=== PATIENT | female | born 1970 | race Caucasian/White ===

== ENCOUNTER → 2016-12-07 | Outpatient (CLI) | payer MEDICARE, OTHER ==
--- NOTE | 2016-12-08 09:25 | RADIOLOGY REPORT (SQ) ---
EXAM DESCRIPTION: MRI RT LOWER JOINT WITHOUT COMPLETED DATE/TIME: 12/07/2016 5:07 pm REASON FOR STUDY: R KNEE PAIN COMPARISON: None. TECHNIQUE: Rightknee images acquired and stored on PACS. Multiplanar images include fat sensitive s equences as T1, water sensitive sequences as FST2 or STIR, cartilage sensitive sequences as FSPD, and gradient echo sequences. LIMITATIONS: None. FINDINGS: JOINT AND BURSAE: Relatively small joint effusion. No loose bodies detected. BONE CORTEX AND MARROW: No alteration of signal to suggest marrow replacement. No worrisome bone lesi ons. No occult fracture. ACL: Intact. No degeneration or ganglion cyst. PCL: Intact. MCL: Intact. No periligamentous edema or fluid. LCL: Intact. No periligamentous edema or fluid. MEDIAL MENISCUS: Minimally extruded appearance. Mild degenerative signal but tear not otherwise sugg ested. LATERAL MENISCUS: No tears. No abnormal signal. MEDIAL COMPARTMENT: No focal chondral lesions or reactive bone changes are suggested. Mild irregular chondral thinning throughout the medial femoral condyle. LATERAL COMPARTMENT: No focal chondral lesions or reactive bone changes are suggested. PATELLA: No chondromalacia. No subchondral cysts. Medial and lateral retinacula intact. EXTENSOR MECHANISM: Intact. Quadriceps and patella tendons normal. SOFT TISSUES: Adjacent muscles and subcutaneous tissues normal. Normal flow void in popliteal artery and vein. OTHER: No other significant finding. IMPRESSION: 1. Generally intact cruciate and collateral ligaments. No suggestion of significant me niscus pathology. 2. No discrete chondral lesions. Mild chondral thinning, particularly in the medi al compartment. 3. Small joint effusion. No loose bodies are appreciated. TECHNICAL DOCUMENTATION: JOB ID: [id number]- All Rights Reserved
--- NOTE | 2016-12-08 11:11 | RADIOLOGY REPORT (SQ) ---
EXAM DESCRIPTION: MRI RT LOWER JOINT WITHOUT COMPLETED DATE/TIME: 12/07/2016 5:07 pm REASON FOR STUDY: R ANKLE PAIN COMPARISON: None. TECHNIQUE: Right ankle images acquired and stored on PACS. Multiplanar images include fat sensitive sequences as T1, fluid sensitive sequences as FST2/STIR, cartilage sensitive sequences as FSPD, and g radient echo sequences. LIMITATIONS: None. FINDINGS: BONE MARROW: No alteration of signal to suggest marrow replacement or edema. No occult fra cture. No large osteophytes. Incidental bone island in the talar dome. EFFUSIONS: No subtalar or tibiotalar effusions. No loose bodies. OSSEOUS ARTICULATIONS: Normal tibiotalar, subtalar, talonavicular and calcaneocuboid joints. TALAR DOME AND TIBIAL PLAFOND: Normal cartilage. No osteochondral defect. ACHILLES TENDON: Intact without partial or full-thickness tear. No adjacent bursal fluid or edema. TIBIALIS ANTERIOR TENDON: Intact without edema at the 1st MT attachment. TIBIALIS POSTERIOR TENDON: Normal morphology and no edema at the navicular attachment. No tendon griffin th fluid. FLEXOR HALLUCIS LONGUS AND FLEXOR DIGITORUM TENDONS: Normal morphology and no tendon sheath fluid. No edema of the os trigonum. PERONEUS LONGUS AND BREVIS TENDON: Normal morphology and no tendon sheath fluid. No subluxation. ATFL, CFL, PTFL: Intact. No thickening or signal alteration. No lopez-ligamentous fluid. DELTOID LIGAMENT: Visualized components intact. TARSAL TUNNEL: No masses. No muscle atrophy. SINUS TARSI: Preserved fat. Normal appearance. PLANTAR FASCIA: No signal alteration or tear. ADJACENT SOFT TISSUES: No masses. OTHER: No other significant finding. IMPRESSION: NORMAL MRI OF THE ANKLE. COMMENT: TECHNICAL DOCUMENTATION: JOB ID: [id number] [employer]- All Rights Reserved
== END ==
LOC: RAD 14:18
PROVIDERS: ATTEND Orthopaedic Surgery
DX: M25.561 Pain in right knee (principal); M25.571 Pain in right ankle and joints of right foot; M25.461 Effusion, right knee

== ENCOUNTER → 2017-04-30 | Outpatient (CLI) | payer OTHER, MEDICARE ==
--- NOTE | 2017-04-30 10:39 | RADIOLOGY REPORT (SQ) ---
EXAM DESCRIPTION: MRI RT LOWER JOINT WITHOUT COMPLETED DATE/TIME: 04/30/2017 9:05 am REASON FOR STUDY: PAIN IN RIGHT KNEE M25.561 PAIN IN RIGHT KNEE COMPARISON: MRI of right knee 12/07/2016 TECHNIQUE: Rightknee images acquired and stored on PACS. Multiplanar images include fat sensitive s equences as T1, water sensitive sequences as FST2 or STIR, cartilage sensitive sequences as FSPD, and gradient echo sequences. LIMITATIONS: None. FINDINGS: JOINT AND BURSAE: Moderate size suprapatellar knee joint effusion. BONE CORTEX AND MARROW: No alteration of signal to suggest marrow replacement. No worrisome bone lesi ons. No occult fracture. ACL: Intact. No degeneration or ganglion cyst. PCL: Intact. MCL: Intact. No periligamentous edema or fluid. LCL: Intact. No periligamentous edema or fluid. MEDIAL MENISCUS: Small horizontal tear midbody medial meniscus without parameniscal cyst, best shown on coronal image 18. LATERAL MENISCUS: No tears. No abnormal signal. MEDIAL COMPARTMENT: Moderate chondromalacia weight-bearing surface medial femoral condyle. No bone br uises or reactive marrow edema. No osteophytes. LATERAL COMPARTMENT: Cartilage preserved. No bone bruises or reactive marrow edema. No osteophytes. PATELLA: Mild lateral facet patellar chondromalacia. No subchondral cysts. Medial and lateral retinac quinn intact. EXTENSOR MECHANISM: Intact. Quadriceps and patella tendons normal. SOFT TISSUES: Adjacent muscles and subcutaneous tissues normal. Normal flow void in popliteal artery and vein. OTHER: No other significant finding. IMPRESSION: Joint effusion. Small horizontal tear mid body medial meniscus Chondromalacia lateral patellar facet and medial femoral condyle TECHNICAL DOCUMENTATION: JOB ID: [id number] [employer]- All Rights Reserved
== END ==
LOC: RAD 08:18
PROVIDERS: ATTEND Orthopaedic Surgery Sports Medicine
DX: S83.241A Other tear of medial meniscus, current injury, right knee, initial encounter (principal); X58.XXXA Exposure to other specified factors, initial encounter; M22.41 Chondromalacia patellae, right knee; M25.561 Pain in right knee

== ENCOUNTER 2017-07-16 15:09 | Emergency (ER) | payer OTHER, MEDICARE ==
[2017-07-16] MEDS ORDERED: PROCHLORPERAZINE EDISYLATE INJ 10 MG/2 ML VIAL IV ONE (15:56)
[2017-07-16] MEDS ORDERED: DIPHENHYDRAMINE HCL 50 MG/ML VIAL IV ONE (15:57)
--- NOTE | 2017-07-16 16:02 | ER Document Report ---
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 The headache was 2/5. She went to work Wednesday night the Maxalt did not help. she rested and the headache went up to 4/5 which it is now. This is different location of her normal headaches. She also states that the pain seems to be coming down into her ear and her neck. She has a neurologist in [place]. TRAVEL OUTSIDE OF THE [place] IN LAST 30 DAYS: No - Related Data Allergies/Adverse Reactions: cefadroxil hydrate [From Duricef] Allergy (Mild, Verified 11/14/15 18:00) NSAIDS (Non-Steroidal Anti-Inflamma [Nsaids] Allergy (Mild, Verified 11/14/15 18 :00) Past Medical History - General Information source: Patient - Social History Smoking Status: Never Smoker Frequency of alcohol use: None Drug Abuse: None Lives with: Family Family History: None, Reviewed & Not Pertinent Pulmonary Medical History: Reports: Hx Asthma Neurological Medical History: Reports: Hx Migraine Past Surgical History: Reports: Hx Cholecystectomy, Hx Hysterectomy, Hx Orthopedic Surgery - hip, Hx Tubal Ligation - Immunizations Immunizations up to date: Yes Hx Diphtheria, Pertussis, Tetanus Vaccination: Yes Review of Systems - Review of Systems Constitutional: No symptoms reported EENT: No symptoms reported Cardiovascular: No symptoms reported Respiratory: No symptoms reported Gastrointestinal: No symptoms reported Genitourinary: No symptoms reported Female Genitourinary: No symptoms reported Musculoskeletal: No symptoms reported Skin: No symptoms reported Hematologic/Lymphatic: No symptoms reported Neurological/Psychological: See HPI Physical Exam - Vital signs Vitals: Temp Pulse Resp BP Pulse Ox 97.9 F 114 H 19 124/75 97 07/16/17 15:16 07/16/17 15:16 07/16/17 15:16 07/16/17 15:16 07/16/17 15:16 Interpretation: Normal - General General appearance: Appears well, Alert In distress: None - HEENT Head: Normocephalic, Atraumatic Eyes: Normal Conjunctiva: Normal Pupils: PERRL Mucous membranes: Normal Neck: Supple. No: Lymphadenopathy - Respiratory Respiratory status: No respiratory distress Chest status: Nontender Breath sounds: Normal Chest palpation: Normal - Cardiovascular Rhythm: Tachycardia - 114 Heart sounds: Normal auscultation Murmur: No - Abdominal Inspection: Normal Distension: No distension Bowel sounds: Normal Tenderness: Nontender Organomegaly: No organomegaly - Back Back: Normal, Nontender - Extremities General upper extremity: Normal inspection, Nontender, Normal color, Normal ROM , Normal temperature General lower extremity: Normal inspection, Nontender, Normal color, Normal ROM , Normal temperature, Normal weight bearing. No: Cj's sign - Neurological Neuro grossly intact: Yes Cognition: Normal Orientation: AAOx4 [place] Coma Scale Eye Opening: Spontaneous [place] Coma Scale Verbal: Oriented [place] Coma Scale Motor: Obeys Commands [place] Coma Scale Total: 15 Speech: Normal Motor strength normal: LUE, RUE, LLE, RLE Sensory: Normal - Psychological Associated symptoms: Normal affect, Normal mood - Skin Skin Temperature: Warm Skin Moisture: Dry Skin Color: Normal Skin irregularity: negative: Rash Course - Re-evaluation Re-evalutation: 07/16/17 17:29 Patient states headache is creeping up to 3/5. She has been to CT scan. 07/16/17 17:[address] madrigal who states that she does not need any more workup than a CT scan. Give her Tylenol [address] shows left maxillary sinus due to an air-fluid level but she has no symptoms of sinusitis I will not treat that. 07/16/17 18:17 She states her headache level is back down to 2 with IV fluid running she has gotten 250 mL so far. She can see her neurologist next week, she does not work for the weekend. I told her to return to the emergency room for any worsening of the symptoms or concerns 07/16/17 18:50 Headache down to 1, feels well enough to go home with neurology follow up - Vital Signs Vital signs: Temp Pulse Resp BP Pulse Ox 97.9 F 114 H 19 124/75 97 07/16/17 15:16 07/16/17 15:16 07/16/17 15:16 07/16/17 15:16 07/16/17 15:16 Discharge - Discharge Clinical Impression: right parietal headache Condition: Good Disposition: HOME, SELF-CARE Instructions: Acetaminophen, Intravenous Compazine for Headaches ([facility]), Use of Diphenhydramine, Headache ([facility]), Intravenous (IV) Fluids ([facility]) Additional Instructions: Return to the emergency room if symptoms worsen See your neurologist next week for follow-up Copy of CT scan given to you Referrals: GAURAV KENYON NP [Primary Care Provider] - Follow up as needed
[2017-07-16] MEDS ORDERED: NORMAL SALINE 1000 ML 1,000 ML IV ONE (17:29)
[2017-07-16] MEDS ORDERED: ACETAMINOPHEN 325 MG TABLET PO ONE (17:33)
--- NOTE | 2017-07-16 17:36 | RADIOLOGY REPORT (SQ) ---
EXAM DESCRIPTION: CT HEAD WITHOUT COMPLETED DATE/TIME: 07/16/2017 5:24 pm REASON FOR STUDY: headache, different than usual migraines COMPARISON: None. TECHNIQUE: Axial images acquired through the brain without intravenous contrast. Images reviewed wi th bone, brain and subdural windows. Images stored on PACS. All CT scanners at this facility use dose modulation, iterative reconstruction, and/or weight based d osing when appropriate to reduce radiation dose to as low as reasonably achievable (ALARA). [facility]: Dose Right [facility]: CareDose [facility]: Dose Right [facility]: Teradose 4D [facility]: Smart SafeBoot RADIATION DOSE: CT Rad equipment meets quality standard of care and radiation dose reduction techniq ues were employed. CTDIvol: 64.6 mGy. DLP: 1163 mGy-cm. mGy. LIMITATIONS: None. FINDINGS: VENTRICLES: Normal size and contour. CEREBRUM: No masses. No hemorrhage. No midline shift. No evidence for acute infarction. Normal gra y/white matter differentiation. No areas of low density in the white matter. CEREBELLUM: No masses. No hemorrhage. No alteration of density. No evidence for acute infarction. EXTRAAXIAL SPACES: No fluid collections. No masses. ORBITS AND GLOBE: No intra- or extraconal masses. Normal contour of globe without masses. CALVARIUM: No fracture. PARANASAL SINUSES: Left maxillary sinus air-fluid level. Remaining sinuses are clear. SOFT TISSUES: No mass or hematoma. OTHER: No other significant finding. IMPRESSION: No acute intracranial findings. Acute left maxillary sinusitis. EVIDENCE OF ACUTE STROKE: NO. COMMENT: Quality ID # [id number]: Final reports with documentation of one or more dose reduction techniques (e.g., Automated exposure control, adjustment of the mA and/or kV according to patient size, use of iterative reconstruction technique) TECHNICAL DOCUMENTATION: JOB ID: [id number] [place]-72 2010 [employer]- All Rights Reserved
[2017-07-16 19:23] VITALS: BP 119/51
== END 2017-07-16 19:05 | disposition home or self-care (01) ==
LOC: ER 15:09
DX: R51 Headache (principal); R00.0 Tachycardia, unspecified; J45.909 Unspecified asthma, uncomplicated; Z88.8 Allergy status to other drugs, medicaments and biological substances; Z88.1 Allergy status to other antibiotic agents; Z86.69 Personal history of other diseases of the nervous system and sense organs
CPT/HCPCS: 99284; 96361; 96374; 96375; 70450; J1200; J0780; J7030

== ENCOUNTER → 2017-09-11 | Outpatient (CLI) | payer OTHER ==
--- NOTE | 2017-09-12 14:11 | RADIOLOGY REPORT (SQ) ---
EXAM DESCRIPTION: MRI LT LOWER JOINT WITHOUT COMPLETED DATE/TIME: 09/11/2017 9:21 am REASON FOR STUDY: LEFT HIP BURSITIS M70.72 OTHER BURSITIS OF HIP, LEFT HIP COMPARISON: None. TECHNIQUE: [employer] images acquired and stored on PACS. Multiplanar images to include fat sensitive s equences as T1, fluid sensitive sequences as T2/STIR and gradient echo sequences. Large FOV fat and f luid sensitive sequences include pelvis and opposite hip. LIMITATIONS: None. FINDINGS: BONE CORTEX AND MARROW: No generalized marrow replacement. No occult fracture. No worriso me bone lesions. TARGETED HIP: FEMORAL HEAD: No occult fracture. No osteophytes or subchondral cysts. Normal sphericity of femoral h ead/neck junction. No acetabular dysplasia. No evidence femoroacetabular impingement. No significant effusion. ACETABULUM: No acetabular dysplasia. No subchondral cysts. LABRUM: No loss of cartilage or delamination. Labrum is intact. No paralabral cysts. TROCHANTER: No trochanteric bursal effusion. Edema at the insertion of the gluteus medius on the tro chanter. OPPOSITE HIP: Edema at the insertion of the gluteus medius on the trochanter. PELVIS, LOWER LUMBAR SPINE, SACROILIAC JOINTS: PELVIS : No insufficiency/stress fractures. No significant degenerative changes. Sacroiliac joints normal. L SPINE: No significant osteophytes or degenerative changes of the visualized lumbar spine. MUSCLES AND SOFT TISSUES: Adductors and piriformis normal. Abductors and greater trochanteric bursa n ormal without edema or fluid. Iliopsoas bursa without fluid. Hamstring attachments without edema or t ear. PELVIC SOFT TISSUES: No masses or adenopathy. SCIATIC NERVE: Identified, without masses or abnormal signal. OTHER: No other significant finding. IMPRESSION: Edema at the insertion of the gluteus medius both the left and right, trochanteric syndr ome. Red marrow reconversion without without marrow edema or replacement. TECHNICAL DOCUMENTATION: JOB ID: [id number] [employer]- All Rights Reserved Reading location - IP/workstation name: [email or web address]
== END ==
LOC: RAD 08:18
PROVIDERS: ATTEND Physician Assistant
DX: M70.72 Other bursitis of hip, left hip (principal)

== ENCOUNTER 2018-08-27 15:04 | Emergency (ER) | payer OTHER, MEDICARE ==
[2018-08-27 15:13] VITALS: BP 130/65
[2018-08-27] MEDS ORDERED: OXYCODONE HCL IR 5 MG TABLET PO ONE (15:25)
--- NOTE | 2018-08-27 15:32 | ER Document Report ---
HPI - HPI Time Seen by Provider: 08/27/18 15:17 Pain Level: 2 Notes: Patient is a 48-year-old female with a history of connective tissue disorder, migraine, asthma who presents to the emergency department complaining of continued nasal congestion/discharge, dry nonproductive cough, headache, soreness in the left lower chest when she is coughing over the last couple days. She was diagnosed with flu 3 days ago and has had symptoms total for about 4-5 days. Patient states that she took 1 dose of the Tamiflu, but could not tolerate it so she has not been taking it. She is otherwise able to eat and drink without difficulty. She is urinating normally and having normal bowel movements. Denies any fever, head injury, neck pain, changes in vision/speech/mentation/hearing, sore throat, chest pain, palpitations, syncope, shortness of breath, wheeze, dyspnea, abdominal pain, nausea/vomiting/diarrhea, urinary retention, dysuria, hematuria, or rash. - ROS Systems Reviewed and Negative: Yes All other systems reviewed and negative - REPRODUCTIVE Reproductive: DENIES: : Past Medical History - Social History Smoking Status: Never Smoker Family History: None, Reviewed & Not Pertinent Patient has suicidal ideation: No Patient has homicidal ideation: No Pulmonary Medical History: Reports: Hx Asthma Neurological Medical History: Reports: Hx Migraine Renal/ Medical History: Denies: Hx Peritoneal Dialysis Past Surgical History: Reports: Hx Cholecystectomy, Hx Hysterectomy, Hx Orthopedic Surgery - hip, Hx Tubal Ligation - Immunizations Immunizations up to date: Yes Hx Diphtheria, Pertussis, Tetanus Vaccination: Yes Vertical Provider Document - CONSTITUTIONAL Agree With Documented VS: Yes Notes: PHYSICAL EXAMINATION: GENERAL: Well-appearing, well-nourished and in no acute distress. A&Ox4. Answers questions appropriately. Moves comfortably w/o notable distress HEAD: Atraumatic, normocephalic. EYES: Pupils equal round and reactive to light, extraocular movements intact, sclera anicteric, conjunctiva are normal. ENT: EAC clear b/l. TM's intact b/l without erythema, fluid, or perforation. Nares patent and with clear discharge. oropharynx no erythema without exudates. No tonsilar hypertrophy without erythema or exudate. No palatine shift. Uvula midline. No tongue protrusion. No drooling, hoarseness, or airway compromise. Moist mucous membranes. + frontal sinus tenderness. NECK: Normal range of motion, supple without lymphadenopathy. No rigidity/meningismus. LUNGS: Scant wheeze base b/l. No retractions HEART: Regular rate and rhythm without murmurs, rubs, gallops. ABDOMEN: Soft, nontender, nondistended abdomen. No guarding, no rebound. Normal bowel sounds present. No CVA tenderness bilaterally. NEUROLOGICAL: Normal speech, normal gait. PSYCH: Normal mood, normal affect. SKIN: Warm, Dry, normal turgor, no rashes or lesions noted. - INFECTION CONTROL TRAVEL OUTSIDE OF THE [place] IN LAST 30 DAYS: No Course - Re-evaluation Re-evalutation: 08/27/18 15:51 Patient is an afebrile, well-hydrated, 48-year-old female who presents to the ED with acute URI, suspect sx's continuing from influenza. Vitals are acceptable. PE is otherwise unremarkable. CXR unremarkable. No other labs or imaging warranted at this time based on H&P. Patient has no significant cardiopulmonary or immunocompromised medical conditions. Patient's lungs are clear to auscultation bilaterally without tachycardia, hypoxia, or tachypnea. Patient is tolerating p.o. without any difficulties. Low suspicion for any meningitis, sepsis, peritonsillar/pharyngeal abscess, respiratory compromise, severe dehydration, or other emergent systemic condition at this time. Patient is aware this condition can change from initial presentation and she needs to monitor symptoms closely. Rx for alb inhaler. Conservative measures otherwise for symptoms. Recheck with your PCM in 3-5 days. Return to the ED with any worsening/concerning symptoms otherwise as reviewed in discharge. Patient is in agreement. - Vital Signs Vital signs: Temp Pulse Resp BP Pulse Ox 97.8 F 106 H 20 130/65 H 98 08/27/18 15:11 08/27/18 15:11 08/27/18 15:11 08/27/18 15:11 08/27/18 15:11 Discharge - Discharge Clinical Impression: Acute URI Condition: Stable Disposition: HOME, SELF-CARE Additional Instructions: Maintain adequate fluid intake Take meds as directed tylenol/ibuprofen as needed over the counter cold medication as needed for symptoms Humidified air may help Wash your hands regularly Wear a mask when coughing F/u: with your PCM in 3-5 days for a recheck Return to the ED with any fever, worsening pain, chest pain, palpitations, syncope, worsening MIXON, neck pain/stiffness, shortness of breath, wheezing, drooling, trouble swallowing/breathing, abdominal pain, n/v/d, rash, or worsening/concerning symptoms otherwise. Prescriptions: Albuterol Sulfate [Proair HFA Inhalation Aerosol 8.5 gm MDI] 2 puff IH Q4H PRN #1 mdi PRN Reason: Forms: Elevated Blood Pressure Referrals: ROGELIO BEGUM PA-C [Primary Care Provider] - Follow up as needed
--- NOTE | 2018-08-27 15:46 | RADIOLOGY REPORT (SQ) ---
EXAM DESCRIPTION: CHEST 2 VIEWS COMPLETED DATE/TIME: 08/27/2018 3:32 pm REASON FOR STUDY: cough COMPARISON: 2015 TECHNIQUE: Frontal and lateral radiographic views of the chest acquired. NUMBER OF VIEWS: Two view. LIMITATIONS: None. FINDINGS: LUNGS AND PLEURA: No opacities, masses or pneumothorax. No pleural effusion. MEDIASTINUM AND HILAR STRUCTURES: No masses or contour abnormalities. HEART AND VASCULAR STRUCTURES: Heart normal size. No evidence for failure. BONES: No acute findings. HARDWARE: None in the chest. OTHER: No other significant finding. IMPRESSION: NO SIGNIFICANT RADIOGRAPHIC FINDING IN THE CHEST. TECHNICAL DOCUMENTATION: JOB ID: [id number] [employer]- All Rights Reserved Reading location - IP/workstation name: [email or web address]
== END 2018-08-27 16:08 | disposition home or self-care (01) ==
LOC: ER 15:04
DX: J06.9 Acute upper respiratory infection, unspecified (principal); R51 Headache; R07.89 Other chest pain; Z90.49 Acquired absence of other specified parts of digestive tract; Z90.710 Acquired absence of both cervix and uterus
CPT/HCPCS: 71046; 99283

== ENCOUNTER 2019-03-12 13:59 | Emergency (ER) | payer OTHER, MEDICARE ==
--- NOTE | 2019-03-12 14:24 | ER Document Report ---
ED Medical Screen (RME) - General Chief Complaint: Leg Pain Stated Complaint: LEG PAIN Time Seen by Provider: 03/12/19 14:13 Primary Care Provider: ROGELIO BEGUM PA-C [Primary Care Provider] - Follow up as needed Mode of Arrival: Ambulatory Information source: Patient Notes: 49-year-old female presented to ED for complaint of pain to the back of the left knee and calf. She states it is been swelling and very painful. She states she is been doing a lot of traveling by car and airplane for the last month. She is a registered nurse. She states her only medical history is asthma and migraines. She does not smoke occasionally drinks and lives with her family. Patient is alert oriented respirations regular and unlabored speaking in full sentences. She is very tender to the back of the knee with a mild edematous area. I do not see any pedal edema. I have ordered an x-ray to the knee and a venous Doppler to the left leg. I have greeted and performed a rapid initial assessment of this patient. A comprehensive ED assessment and evaluation of the patient, analysis of test results and completion of medical decision making process will be conducted by an additional ED providers. TRAVEL OUTSIDE OF THE [place] IN LAST 30 DAYS: No - Related Data Allergies/Adverse Reactions: cefadroxil hydrate [From Duricef] Allergy (Mild, Verified 08/27/18 15:05) NSAIDS (Non-Steroidal Anti-Inflamma [Nsaids] Allergy (Mild, Verified 08/27/18 15:05) duloxetine [From Cymbalta] Allergy (Verified 08/27/18 15:05) Past Medical History - Social History Frequency of alcohol use: Rare Drug Abuse: None Pulmonary Medical History: Reports: Hx Asthma Neurological Medical History: Reports: Hx Migraine Renal/ Medical History: Denies: Hx Peritoneal Dialysis Musculoskeltal Medical History: Reports Hx Musculoskeletal Deformity, Reports Hx Musculoskeletal Trauma Past Surgical History: Reports: Hx Cholecystectomy, Hx Hysterectomy, Hx Orthopedic Surgery - hip, Hx Tubal Ligation - Immunizations Immunizations up to date: Yes Hx Diphtheria, Pertussis, Tetanus Vaccination: Yes Physical Exam - Vital signs Vitals: Temp Pulse Resp BP Pulse Ox 97.6 F 99 16 133/83 H 99 03/12/19 14:02 03/12/19 14:02 03/12/19 14:02 03/12/19 14:02 03/12/19 14:02 Course - Vital Signs Vital signs: Temp Pulse Resp BP Pulse Ox 97.6 F 99 16 133/83 H 99 03/12/19 14:02 03/12/19 14:02 03/12/19 14:02 03/12/19 14:02 03/12/19 14:02 Doctor's Discharge - Discharge Referrals: ROGELIO BEGUM PARiteshC [Primary Care Provider] - Follow up as needed
--- NOTE | 2019-03-12 15:52 | ER Document Report ---
ED General - General Chief Complaint: Leg Pain Stated Complaint: LEG PAIN Time Seen by Provider: 03/12/19 14:13 Primary Care Provider: ROGELIO BEGUM PA-C [NO LOCAL MD] - Follow up as needed Mode of Arrival: Ambulatory Notes: Patient is a 49-year-old female that presents to the emergency department for chief complaint of left knee and leg pain. Patient states that she has been having progressively worsened left leg pain, over the past month, and it got worse over the past 3 days, is worse with walking, and it comes and goes, depending on positioning it seems. But she was concerned she may have a DVT because she does drive on a regular basis. She describes the pain as an aching sensation, that is worse with ambulation, she reports having a history of having joint issues, she is had multiple hip surgeries and knee surgeries in the past, I think she may have a connective tissue disorder. She currently rates her pain as a 3 out of 10 at rest. No other complaints at this time. Denies any new leg swelling, shortness of breath, chest pain or difficulty breathing. Past Medical History: Denies chronic medical conditions Past Surgical History: Hip surgery, knee surgery Social History: Denies tobacco, alcohol or drug use. Family History: Reviewed and noncontributory for presenting illness Allergies: Reviewed, see documented allergy list. REVIEW OF SYSTEMS: Other than noted above, the 12 point review of systems was reviewed with the patient and were negative, all pertinent findings are included in the HPI. PHYSICAL EXAMINATION: Vital signs reviewed, nursing noted reviewed. GENERAL: Well-appearing, well-nourished and in no acute distress. HEAD: Atraumatic, normocephalic. EYES: Eyes appear normal, extraocular movements intact, sclera anicteric, conjunctiva are normal. ENT: nares patent, oropharynx clear without exudates. Moist mucous membranes. NECK: Normal range of motion, supple without lymphadenopathy LUNGS: Breath sounds clear to auscultation bilaterally and equal. No wheezes rales or rhonchi. HEART: Regular rate and rhythm without murmurs ABDOMEN: Soft, nontender, normoactive bowel sounds. No rebound, guarding, or rigidity. No masses appreciated. EXTREMITIES: The left knee, started to have some pain with range of motion, particular with flexion, no significant pain with varus or valgus stressing, no joint instability, negative anterior and posterior drawer testing, there is a palpable Raymundo's cyst on the lateral aspect of the left knee, and there is tenderness with palpation to the joint line posteriorly, and somewhat anteriorly on the lateral aspect as well. The rest of the extremity exam of the left hip and ankle and foot, and the bilateral upper and right lower extremity are unremarkable. NEUROLOGICAL: No focal neurological deficits. Moves all extremities spontaneously Motor and sensory grossly intact on exam. PSYCH: Normal mood, normal affect. SKIN: Warm, Dry, normal turgor, no rashes or lesions noted on exposed skin TRAVEL OUTSIDE OF THE [place] IN LAST 30 DAYS: No - Related Data Allergies/Adverse Reactions: cefadroxil hydrate [From Duricef] Allergy (Mild, Verified 08/27/18 15:05) NSAIDS (Non-Steroidal Anti-Inflamma [Nsaids] Allergy (Mild, Verified 08/27/18 15:05) duloxetine [From Cymbalta] Allergy (Verified 08/27/18 15:05) Past Medical History - General Information source: Patient - Social History Smoking Status: Never Smoker Frequency of alcohol use: Rare Drug Abuse: None Family History: None, Reviewed & Not Pertinent Patient has suicidal ideation: No Patient has homicidal ideation: No Pulmonary Medical History: Reports: Hx Asthma Neurological Medical History: Reports: Hx Migraine Renal/ Medical History: Denies: Hx Peritoneal Dialysis Musculoskeletal Medical History: Reports Hx Musculoskeletal Deformity, Reports Hx Musculoskeletal Trauma Past Surgical History: Reports: Hx Cholecystectomy, Hx Hysterectomy, Hx Orthopedic Surgery - hip, Hx Tubal Ligation - Immunizations Immunizations up to date: Yes Hx Diphtheria, Pertussis, Tetanus Vaccination: Yes Physical Exam - Vital signs Vitals: Temp Pulse Resp BP Pulse Ox 97.6 F 99 16 133/83 H 99 03/12/19 14:02 03/12/19 14:02 03/12/19 14:02 03/12/19 14:02 03/12/19 14:02 Course - Re-evaluation Re-evalutation: Patient seen and examined vital signs reviewed. Patient was evaluated and treated as appropriate for the patient's presenting symptoms and complaint, with consideration of any critical or life threatening conditions that may be associated with their obtained history and exam as noted above. Duplex ultrasound of the left lower extremity is negative for DVT, and x-rays are negative for any acute bony injury. The patient was re-evaluated and was stable, patient was noted to have a Raymundo's cyst on exam, and I suspect a meniscal injury in this patient, given the symptoms that are worse with palpation of the posterior aspect of the knee, and worse with certain positions and motions of the knee. She has a history of joint issues in the past, has had multiple joint surgeries, and most likely that this is the cause the patient's pain. Evaluation was most consistent with Raymundo's cyst, and knee pain, advised follow- up with orthopedic surgery. Plan of care was discussed with the patient at this point, after careful consideration I feel that that patient can be discharged from the emergency department, the patient was educated treatments and reasons to return to the emergency department based on their presumed diagnosis as noted above, they were advised to followup with a primary care physician in 2-3 days. Patient was agreeable to plan of care. *Note is created using voice recognition software and may contain spelling, syntax or grammatical errors. Knee X-Ray 03/12/19 14:19 IMPRESSION: No radiographic evidence for acute fracture at the left knee. Venous Doppler Study 03/12/19 14:19 IMPRESSION: NO EVIDENCE FOR DVT OR SVT IN THE LEFT LEG. - Vital Signs Vital signs: Temp Pulse Resp BP Pulse Ox 98.0 F 94 16 113/80 100 03/12/19 16:50 03/12/19 16:50 03/12/19 16:50 03/12/19 16:50 03/12/19 16:50 Discharge - Discharge Clinical Impression: Left knee pain Qualifiers: Chronicity: acute Qualified Code(s): M25.562 - Pain in left knee Bakers cyst Qualifiers: Laterality: left Qualified Code(s): M71.22 - Synovial cyst of popliteal space [Raymundo], left knee Condition: Stable Disposition: HOME, SELF-CARE Instructions: Raymundo's Cyst ([facility]) Additional Instructions: Please follow-up with orthopedic surgery, to be further evaluated, you may need an MRI to further diagnose, the cause of your knee pain. In the meantime, hopefully the steroid injection will help with your pain, you can also take Tylenol, up to 3000 mg/day, divided and doses every 6-8 hours. You have also been prescribed tramadol, to take for breakthrough type pain. [facility] [address] [place] [address] Prescriptions: Tramadol HCl [Ultram] 50 mg PO Q8H PRN #15 tablet PRN Reason: knee pain Referrals: ROGELIO BEGUM PA-C [NO LOCAL MD] - Follow up as needed
[2019-03-12] MEDS ORDERED: METHYLPREDNISOLONE ACETATE INJ 80 MG/1 ML VIAL IM ONE (16:05)
--- NOTE | 2019-03-12 16:26 | RADIOLOGY REPORT (SQ) ---
EXAM DESCRIPTION: KNEE LEFT 4 VIEW COMPLETED DATE/TIME: 03/12/2019 3:48 pm REASON FOR STUDY: pain left posterior knee and calf COMPARISON: None. NUMBER OF VIEWS: Four views. TECHNIQUE: AP, lateral, and both oblique radiographic images acquired of the left knee. LIMITATIONS: None. FINDINGS: MINERALIZATION: Normal. BONES: No acute fracture or dislocation. JOINT: No effusion. SOFT TISSUES: No soft tissue swelling. No radio-opaque foreign body. IMPRESSION: No radiographic evidence for acute fracture at the left knee. TECHNICAL DOCUMENTATION: JOB ID: [id number] [place]-[id number] 2010 [employer]- All Rights Reserved Reading location - IP/workstation name: [email or web address]
--- NOTE | 2019-03-12 16:34 | RADIOLOGY REPORT (SQ) ---
EXAM DESCRIPTION: VENOUS UNILATERAL LOWER COMPLETED DATE/TIME: 03/12/2019 3:18 pm REASON FOR STUDY: pain in posterior knee and calf . Left lower extremity pain, pain in the calf. COMPARISON: None. TECHNIQUE: Grayscale and color images acquired of the left leg venous system. Selected spectral imag es acquired with additional compression and augmentation maneuvers. The contralateral common femoral vein and saphenofemoral junction were also imaged. Images stored on PACS. LIMITATIONS: None. FINDINGS: COMMON FEMORAL: Normal phasicity, compression and augmentation. No visualized echogenic ma terial on carolina scale. No defects on color images. FEMORAL: Normal compression and augmentation. No visualized echogenic material on carolina scale. No defe cts on color images. POPLITEAL: Normal compression, augmentation. No visualized echogenic material on carolina scale. No defec ts on color images. CALF VESSELS: Normal compression, augmentation. No visualized echogenic material on carolina scale. No de fects on color images. GSV and SSV: Normal compression, augmentation. No visualized echogenic material on carolina scale. No def ects on color images. ANY DEEP VENOUS INSUFFICIENCY: Not evaluated. ANY EVIDENCE OF POPLITEAL CYST: No. OTHER: No other significant finding. CONTRALATERAL COMMON FEMORAL VEIN AND SAPHENOFEMORAL JUNCTION: Normal phasicity, compression and augmentation. No visualized echogenic material on carolina scale. No de fects on color images. IMPRESSION: NO EVIDENCE FOR DVT OR SVT IN THE LEFT LEG. TECHNICAL DOCUMENTATION: JOB ID: [id number] [place]-[id number] 2010 [employer]- All Rights Reserved Reading location - IP/workstation name: [email or web address]
[2019-03-12 16:53] VITALS: BP 113/80
== END 2019-03-12 16:53 | disposition home or self-care (01) ==
LOC: ER 13:59
DX: M25.562 Pain in left knee (principal); M71.22 Synovial cyst of popliteal space [Baker], left knee; M79.605 Pain in left leg; Z90.49 Acquired absence of other specified parts of digestive tract; Z90.710 Acquired absence of both cervix and uterus
CPT/HCPCS: 93971; 73564; J1040; 96374; 99284

== ENCOUNTER 2019-09-01 08:15 | Day surgery (SDC) | payer OTHER, MEDICARE ==
[~2019-09-01 08:15] MED LIST: PROPOFOL INJ 200 MG/20 ML VIAL IV ONE
[2019-09-01 11:03] VITALS: BP 116/65
--- NOTE | 2019-09-01 12:24 | Operative Report ---
Operative Report DATE OF SURGERY: 09/01/19 Operative Report: The risk, benefits and alternatives of the procedure including the risk of bleeding, perforation requiring surgery have been explained to the patient in detail and informed consent has been obtained. Timeout was called. Propofol medication is administered. Rectal examination is done which did not reveal any masses, tears or fissures. An Olympus videoscope was introduced into the patient's rectum. Scope was then advanced all the way to the cecum. Prep was good. The various segments of the colon evaluated. Retroflexion maneuver is done. Following the completion of the colonoscopy EGD was performed. PREOPERATIVE DIAGNOSIS: Personal history of polyp. Gastroesophageal reflux disease POSTOPERATIVE DIAGNOSIS: Normal surveillance colonoscopy. Gastritis status post biopsy without Helicobacter pylori OPERATION: Diagnostic colonoscopy. EGD with biopsy SURGEON: DAT DICKSON ANESTHESIA: LMAC TISSUE REMOVED OR ALTERED: As noted above. COMPLICATIONS: None. ESTIMATED BLOOD LOSS: None. INTRAOPERATIVE FINDINGS: As noted above. PROCEDURE: Patient tolerated the procedure well. No immediate postprocedure complications are noted. Patient is discharged in good condition. Discharge date 09/01/2019. Discharge diet: Regular. Discharge activity: Regular. 2 to 3-week follow-up to discuss findings. Patient is instructed to call the office or proceed to the emergency room should there be any further problems or questions. Wait on the pathology. Can consider 10-year surveillance colonoscopy.
== END 2019-09-01 11:03 | disposition home or self-care (01) ==
LOC: END 08:15
PROVIDERS: ATTEND Internal Medicine Gastroenterology
DX: K29.50 Unspecified chronic gastritis without bleeding (principal); Z12.11 Encounter for screening for malignant neoplasm of colon; Z86.010 Personal history of colon polyps; E03.9 Hypothyroidism, unspecified; K21.9 Gastro-esophageal reflux disease without esophagitis; Q79.60 Ehlers-Danlos syndrome, unspecified; J45.909 Unspecified asthma, uncomplicated; Z79.899 Other long term (current) drug therapy; Z79.891 Long term (current) use of opiate analgesic; Z88.8 Allergy status to other drugs, medicaments and biological substances
CPT/HCPCS: 43239; 45378; 88305 ×2; 00813; J2704; 45380; 813

== ENCOUNTER 2019-09-18 09:19 | Emergency (ER) | payer OTHER, MEDICARE ==
[2019-09-18] MEDS ORDERED: ACETAMINOPHEN 325 MG TABLET PO ONE (09:50)
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
[2019-09-18 11:22] VITALS: BP 145/78
== END 2019-09-18 11:20 | disposition home or self-care (01) ==
LOC: ER 09:19
DX: M54.2 Cervicalgia (principal); M54.6 Pain in thoracic spine; V43.52XA Car driver injured in collision with other type car in traffic accident, initial encounter; Z90.49 Acquired absence of other specified parts of digestive tract; Z90.710 Acquired absence of both cervix and uterus; Z98.51 Tubal ligation status
CPT/HCPCS: 72125; 99283